=== PATIENT | female | born 1990 | race Caucasian/White ===

== ENCOUNTER 2021-06-17 15:36 | Inpatient (IN) | payer OTHER ==
[~2021-06-17] VITALS: Ht 157.5 cm; Wt 149.2 kg
[~2021-06-17 15:36] MED LIST: IBUPROFEN800 MG PO; JUNEL1 EAC1; MECLIZINE HCL25 MG PO; PROCARDIA XL30 MG PO; SERTRALINE HCL25 MG PO; TRANSDERM-SCOP1 EA TD; ZOFRAN ODT8 MG PO
--- NOTE | 2021-06-22 09:43 | NUR ---
06/22/21 0943 Cyndie Medina 0914 PT ARRIVED TO ROOM 103, PT WAKE AND TALKING TO RN. VSS. PT DENIES PAIN AND NAUSEA. FBC RN AND AT BEDSIDE. 0940 REPORT TO FBC RN. VSS. PT CONTINUES TO DENY PAIN AND NAUSEA. SPINAL LEVEL T-7 AND PT ABLE TO MOVE FEET AND LEGS SLIGHTLY. CALL LIGHT WITHIN REACH AND BED IN LOW.
[2021-06-23] MEDS ORDERED: PRENATAL VITAM1 EACH PO (02:29)
[2021-06-23] MEDS ORDERED: IRON325 M1 PO (02:30)
--- NOTE | 2021-06-23 11:30 | PATH ---
[facility] [address] [place], [place] [address] Signed SPECIMEN(S): A BILATERAL FALLOPIAN TUBES SPECIMEN SOURCE: A. BILATERAL FALLOPIAN TUBES CLINICAL HISTORY: S/p ; desired sterilization. FINAL PATHOLOGIC DIAGNOSIS: Fallopian tubes, bilateral, salpingectomy: - Two fallopian tubes with paratubal cysts and decidual reaction. - Complete cross-section of each tube identified. NAL:cml:C2NR MICROSCOPIC EXAMINATION: Histologic sections of all submitted blocks are examined by light microscopy. These findings, together with the gross examination, support the pathologic diagnosis. GROSS DESCRIPTION: The specimen, labeled "AB, fallopian tubes, bilateral," is received in formalin and consists of two undesignated fallopian tubes. Both of them show fimbria and violaceus and smooth serosa. The first tube measures 6.0 x 0.7 cm. The second fallopian tube measures 4.2 x 0.8 cm. Perl Developer sections for first tube submitted in cassette (A1). Perl Developer sections for second tube submitted in cassette (A2). JS (under the direct supervision of a pathologist) The Gross Description was prepared using a voice recognition system. The report was reviewed for accuracy; however, sound-alike word errors, addition and/or deletions may occur. If there is any question about this report, please contact Client Services. PERFORMING LABORATORY: The technical component was performed by [facility], [address] [place] [address] (Cafeteria Counter Attendant: Rekha Black MD; CLIA# [id number]). [facility], [address] [address] (CLIA# [id number]). Diagnostician: Jamee Suero MD PATIENT NAME: OLAMIDE NANCE PATHOLOGY DATE OF : 89 REPORT #: [id number] PHYSICIAN: [facility] PCP: LEANNE FANG NP REPORT IS CONFIDENTIAL AND NOT TO BE RELEASED WITHOUT AUTHORIZATION [address] [place], [place] [address] Signed Pathologist Electronically Signed 06/23/2021 Copies: ~ PATIENT NAME: OLAMIDE NANCE PATHOLOGY DATE OF : [birth year] REPORT #: [id number] PHYSICIAN: [facility] PCP: LEANNE FANG NP REPORT IS CONFIDENTIAL AND NOT TO BE RELEASED WITHOUT AUTHORIZATION
--- NOTE | 2021-06-23 12:15 | PR ---
[facility] [address] [facility] [place], [place] [address] Signed PP Progress Notes Datetime Report Generated by CPN: 06/23/2021 12:15 SUBJECTIVE: [id number] Pain: Within Normal Limits Nausea/Vomiting: Denies Flatus: Yes Bowel Movement: No Vital Signs: [id number] Vital Signs: Reviewed; Within Normal Limits Notable Details: HTN resolved Cardiovascular: Normal Respiratory: Normal Abdomen/Uterus: Normal Lochia: Normal Vulva/Perineum: Not Done Breasts: Not Done CVA Tenderness: Normal Extremities: Normal Incision: Normal Progress: Normal Exam Comments: Fundus firm, Incision healing well IMPRESSION/PLAN/PROCEDURES: [id number] Impression: Normal Progression Plan: Continue Present Management Progress Notes: Pt seen and examined. Doing well. Ambulating, voiding, and tolerating full diet. Pain and lochia minimal. well. No fevers, chills, lightheadedness, or other concerns. HTN resolved. No MCLAIN, RUQ pain, or visual changes. Anticipated d/c home tomorrow Signing Physician: Paula Jernigan DO Copies: ~ *Electronically Signed* 06/23/21 1215 PAULA JERNIGAN DO PATIENT NAME: OLAMIDE NANCE PROGRESS NOTE DATE OF : [birth year] PHYSICIAN: PAULA JERNIGAN DO RPT #: [id number] REPORT IS CONFIDENTIAL AND NOT TO BE RELEASED WITHOUT AUTHORIZATION
--- NOTE | 2021-06-24 09:24 | PR ---
[facility] [address] [facility] [place], [place] [address] Signed PP Progress Notes Datetime Report Generated by CPN: 06/24/2021 09:24 SUBJECTIVE: [id number] Pain: Within Normal Limits Nausea/Vomiting: Denies Flatus: Yes Bowel Movement: No Vital Signs: [id number] Vital Signs: Reviewed Notable Details: No severe range bps Cardiovascular: Normal Respiratory: Normal Abdomen/Uterus: Normal Lochia: Normal Vulva/Perineum: Not Done Breasts: Not Done CVA Tenderness: Normal Extremities: Normal Incision: Normal Progress: Normal Exam Comments: Fundus firm Nontender. Incision well healing w/ elsi in place IMPRESSION/PLAN/PROCEDURES: [id number] Impression: Normal Progression Plan: Discharge Progress Notes: Pt seen and examined. Doing well. Ambulating, voiding, and tolerating full diet. Pain and lochia minimal. BPs well controlled w/ current regimen. well. No fevers/chills/dizziness or other concerns. Desires d/c home. Reviewed d/c instructions in detail and all questions. Signing Physician: Paula Jernigan DO Copies: ~ *Electronically Signed* 06/24/21 0924 PAULA JERNIGAN DO PATIENT NAME: OLAMIDE NANCE PROGRESS NOTE DATE OF : [birth year] PHYSICIAN: PAULA JERNIGAN DO RPT #: [id number] REPORT IS CONFIDENTIAL AND NOT TO BE RELEASED WITHOUT AUTHORIZATION
--- NOTE | 2021-07-21 06:47 | OR ---
[facility] [address] [facility] [place], [place] [address] Signed DATE OF OPERATION: 06/22/2021 SURGEON: Paula Jernigan DO PREOPERATIVE DIAGNOSES: 1. in 36 weeks gestation. 2. History of prior with prior T-incision of the uterus. 3. Morbid obesity. 4. Gestational diabetes. 5. Chronic hypertension. POSTOPERATIVE DIAGNOSES: 1. in 36 weeks gestation. 2. History of prior with prior T-incision of the uterus. 3. Morbid obesity. 4. Gestational diabetes. 5. Chronic hypertension. 6. Omental adhesions. PROCEDURE PERFORMED: 1. Repeat low transverse delivery. 2. Bilateral salpingectomy. ANESTHESIA: Spinal. STUDENT ASSISTANT: Gilmer Weems MD. ESTIMATED BLOOD LOSS: 500 mL. COMPLICATIONS: None. FINDINGS: Viable female born in the LOP position, weighing 6 pounds 4 ounces with Apgars of 9 and 9, clear amniotic fluid, normal-appearing placenta and umbilical cord. Normal uterus, tubes, and ovaries. There were dense omental adhesions to the peritoneum, which were taken down. Electronically Signed By: PAULA JERNIGAN DO 07/21/21 0647 PATIENT NAME: OLAMIDE NANCE OPERATIVE REPORT DATE OF : 89 REPORT #: [id number] PHYSICIAN: PAULA JERNIGAN DO PCP: FANG,LEANNE ENGINE MONITOR REPORT IS CONFIDENTIAL AND NOT TO BE RELEASED WITHOUT AUTHORIZATION [facility] [address] [place], [place] [address] Signed INDICATIONS: Ms. Nance is a pleasant 31-year-old G3, P2 female, who presents to Labor and Delivery for scheduled repeat low transverse delivery and bilateral tubal ligation. was complicated by history of prior with T-incision of the uterus and previously [facility] had recommended delivery at 36 week due to this risk factor. She also has gestational diabetes, chronic hypertension, morbid obesity. She desired tubal ligation and Ethics Committee was requested to meg this and given her complications, this was granted. Risks, benefits, and alternatives were discussed in detail with the patient. The patient understands, wished to proceed with the procedure. TECHNIQUE: The patient was taken to the operating room where a time-out was performed to confirm correct patient, correct procedure. Spinal anesthesia was adequately established and the patient was prepped and draped in the supine position with a bump in the right hip. She was given Ancef 3 g preoperatively and heparin 5000 units. A Spring catheter was inserted. Spinal anesthetic tested and was adequate, a Pfannenstiel skin incision was made through her prior scar and carried down to the fascia. Fascia was nicked in the midline and fascial incision was extended bilaterally with Bello scissors. Dense scarring of the fascia and the rectus sheath was noted, but this was taken down bluntly and sharply without difficulty. The peritoneum was grasped with hemostats, elevated and entered sharply. Dense omental adhesions to the anterior abdominal wall were noted. These were carefully taken down by using Cordelia clamp to divide the omentum from the peritoneum and suture ligated with excellent hemostasis. Once these dense omental adhesions were cleared, the lower uterine segment was identified and Daniel self retractor was placed. Hysterotomy was performed using a surgical scalpel and clear amniotic fluid was noted. Hysterotomy was extended bilaterally using blunt dissection. The head was elevated in the abdomen, delivered with the assistance of fundal pressure. No nuchal cord was noted and the amniotic fluid was again clear. was vigorous and cried upon delivery. The cord was doubly clamped and cut. Cord blood was obtained for routine analysis. The placenta was then expressed intact with a centrally inserted three-vessel cord and the uterine cavity was cleared of any remaining products of conception or clot. Hysterotomy was repaired using 0 Monocryl in two layers with the first being a running locked layer and the 2nd imbricating stitch in a vertical manner with excellent hemostasis. The pelvis was irrigated and found to be hemostatic. Attention was then turned to the tubal ligation. Normal tubes and ovaries were identified bilaterally. The left fallopian tube was grasped with Nelida clamps and a window was made in an avascular portion of the mesosalpinx. The mesosalpinx was serially clamped, cut, and tied with 2-0 chromic with excellent hemostasis and salpingectomy was performed without difficulty. The process was repeated on the contralateral side with excellent hemostasis appreciated. The pelvis was again irrigated and found to be hemostatic. The Daniel self retractor was removed and ACell Electronically Signed By: PAULA JERNIGAN DO 07/21/21 0647 PATIENT NAME: OLAMIDE NANCE OPERATIVE REPORT DATE OF : [birth year] REPORT #: [id number] PHYSICIAN: PAULA JERNIGAN DO PCP: LEANNE FANG NP REPORT IS CONFIDENTIAL AND NOT TO BE RELEASED WITHOUT AUTHORIZATION [address] [address] Signed sheet was applied to the lower uterine segment. Peritoneum was reapproximated using 2-0 Vicryl in a running nonlocked manner. The rectus was examined and made hemostatic with judicious use of Bovie electrocautery and then plicated in the midline using 0 Vicryl in interrupted sutures. Fascia was reapproximated using 0 Vicryl in a running nonlocked manner. Subcu was made hemostatic after irrigation with judicious use of Bovie electrocautery. Subcu was reapproximated with 3-0 Vicryl in a running nonlocked manner. Skin was closed with surgical elsi. The uterus was Crede'd for scant amount of blood. The patient was taken to the PACU in good and stable condition. Sponge, needle, and instrument count were correct x2 at the end the procedure. Dr. Weems was present and participated in all portions of the procedure. Paula Jernigan DO JDW/MODL /[id number] Copies: ~ Electronically Signed By: PAULA JERNIGAN DO 07/21/21 0647 PATIENT NAME: OLAMIDE NANCE OPERATIVE REPORT DATE OF : [birth year] REPORT #: [id number] PHYSICIAN: PAULA JERNIGAN DO PCP: LEANNE FANG NP REPORT IS CONFIDENTIAL AND NOT TO BE RELEASED WITHOUT AUTHORIZATION
== END 2021-06-24 09:50 | disposition home or self-care (01) | DRG 787 ==
LOC: FBC 06-22 05:03 → DSVR 06-22 07:30 → FBC 06-24 09:50
PROVIDERS: ADMIT Obstetrics & Gynecology; ATTEND Obstetrics & Gynecology
PROC: 10D00Z1 Extraction of Products of Conception, Low, Open Approach (ICD-10-PCS; principal; 2021-06-22 07:30)
DX: O34.211 Maternal care for low transverse scar from previous cesarean delivery (principal); O10.92 Unspecified pre-existing hypertension complicating childbirth; Z3A.36 36 weeks gestation of pregnancy; Z37.0 Single live birth; O99.02 Anemia complicating childbirth; D64.9 Anemia, unspecified; O26.893 Other specified pregnancy related conditions, third trimester; Z67.11 Type A blood, Rh negative; O99.344 Other mental disorders complicating childbirth; F32.9 Major depressive disorder, single episode, unspecified; F41.0 Panic disorder [episodic paroxysmal anxiety]; O24.420 Gestational diabetes mellitus in childbirth, diet controlled; O99.214 Obesity complicating childbirth; E66.01 Morbid (severe) obesity due to excess calories
CPT/HCPCS: 01961; 80053; 82570; 83030; 84156; 85027; 86850; 86900; 86901; A9270; J0690; J1644; J1650; J1885; J2001; J2274; J2370; J2405; J2590; J2790; J3010; J7121